=== PATIENT | male | born 1965 | race Caucasian/White ===

== ENCOUNTER 2023-07-19 10:12 | Emergency (ER) | payer SELFPAY ==
[~2023-07-19] VITALS: Ht 172.7 cm; Wt 87.2 kg
[2023-07-19 10:20] VITALS: BP 135/80; PULSE 68; RESP 16; TEMP 98.3; O2SAT 98
[2023-09-18] MEDS ORDERED: APIX5TAB MT (15:09)
== END 2023-07-19 10:54 | disposition left against medical advice (07) ==
LOC: ER 10:12
DX: M79.604 Pain in right leg (principal); M79.605 Pain in left leg
CPT/HCPCS: 99283